=== PATIENT | female | born 1965 ===

== ENCOUNTER 2018-01-01 11:27 | Emergency (ER) | payer OTHER ==
[2018-01-01 11:45] VITALS: RESP 20
[2018-01-01] MEDS ORDERED: Morphine 4 MG/ML VIAL IVP STA (12:51)
[2018-01-01 13:13] LABS: BASO % 0.5 % (0.0-2.0); EOS # 0.2 K/uL (0.0-0.7); EOS % 3.6 % (0.0-4.0); HEMOGLOBIN 14.2 g/dL (12.0-16.0); LYMPH # 1.5 K/uL (1.0-4.3); LYMPH % 29.7 % (20.0-40.0); MEAN CELL VOLUME 89.3 fl (81.0-99.0); MEAN CORPUSCULAR HEMOGLOBIN 30.1 pg (27.0-31.0); MEAN CORPUSCULAR HGB CONC 33.7 g/dL (33.0-37.0); MEAN PLATELET VOLUME 9.1 fl (7.2-11.7); MONO # 0.3 K/uL (0.0-0.8); MONO % 6.7 % (0.0-10.0); NEUT # 2.9 K/uL (1.8-7.0); NEUT % 59.5 % (50.0-75.0); NRBC % 0.1 % (0.0-0.0); RBC 4.72 Mil/uL (3.80-5.20); RED CELL DISTRIBUTION WIDTH 13.5 % (11.5-14.5); WHITE BLOOD COUNT 4.9 K/uL (4.8-10.8)
[2018-01-01 13:14] LABS: SQUAMOUS EPITHIAL 1 /hpf (0-5); URINE BACTERIA OCC (<OCC); URINE BILIRUBIN NEGATIVE (NEGATIVE); URINE BLOOD NEGATIVE (NEGATIVE); URINE CLARITY CLEAR (Clear); URINE COLOR YELLOW (YELLOW); URINE GLUCOSE (UA) NEG (Normal); URINE LEUKOCYTE ESTERASE NEG Leu/uL (Negative); URINE PROTEIN NEGATIVE (NEGATIVE); URINE UROBILINOGEN 0.2-1.0 mg/dL (0.2-1.0)
[2018-01-01] MEDS ORDERED: Morphine 4 MG/ML VIAL ONE (13:24)
[2018-01-01 13:25] LABS: ALB/GLOB RATIO 1.2 (1.0-2.1); ALBUMIN 4.2 g/dL (3.5-5.0); ALT/SGPT 83 U/L (9-52); AMYLASE 87 U/L (30-110); AST/SGOT 41 U/L (14-36); BLOOD UREA NITROGEN 11 mg/dl (7-17); CALCIUM 9.7 mg/dL (8.4-10.2); GFR AFRICAN-AMERICAN > 60; GFR NON-AFRICAN AMERICAN > 60; LIPASE 134 U/L (23-300)
[2018-01-01] MEDS: Sodium Chloride 0.9% 1,000 ML IV SCH ×3 (13:35→15:25)
[2018-01-01] MEDS ORDERED: Iohexol 300 100 ML IJ ONE (14:39)
--- NOTE | 2018-01-01 15:07 | ED PDOC ---
HPI: Abdomen Time Seen by Provider: 01/01/18 12:23 Chief Complaint (Nursing): Abdominal Pain Chief Complaint (Provider): Abdominal Pain History Per: Patient History/Exam Limitations: no limitations Onset/Duration Of Symptoms: Persistent (x1 week) Current Symptoms Are (Timing): Still Present Additional Complaint(s): 52 year old female presents to the emergency department with a complaint of right-sided abdominal pain associated with constipation and nausea ongoing for 1 week. She denied any vomiting, diarrhea, bloody stool, urinary complaints or pain upon defecation. Of note, patient reported a possible family history of colon cancer. PMD: none provided Past Medical History Reviewed: Historical Data, Nursing Documentation, Vital Signs Vital Signs: Last Vital Signs Temp 98 F 01/01/18 18:09 Pulse 78 01/01/18 18:09 Resp 20 01/01/18 11:41 BP 120/70 01/01/18 18:09 Pulse Ox 98 01/01/18 18:09 - Medical History PMH: No Chronic Diseases - Surgical History Surgical History: No Surg Hx - Family History Family History: States: Unknown Family Hx Other Family History: Possible colon cancer - Social History Current smoker - smoking cessation education provided: No Alcohol: None Drugs: Denies - Home Medications Home Medications: Ambulatory Orders Medication Instructions Recorded Ranitidine HCl [Zantac] 150 mg PO BID #20 tablet 01/01/18 - Allergies Allergies/Adverse Reactions: Allergies Allergy/AdvReac Type Severity Reaction Status Date / Time No Known Allergies Allergy Verified 01/01/18 11:40 Review of Systems ROS Statement: Except As Marked, All Systems Reviewed And Found Negative Gastrointestinal: Positive for: Nausea, Abdominal Pain (right-sided), Constipation. Negative for: Vomiting, Diarrhea, Hematochezia, Rectal Pain Genitourinary Female: Negative for: Dysuria, Hematuria Physical Exam - Reviewed Nursing Documentation Reviewed: Yes Vital Signs Reviewed: Yes - Physical Exam Appears: Positive for: Non-toxic, No Acute Distress Head Exam: Positive for: ATRAUMATIC, NORMAL INSPECTION, NORMOCEPHALIC Skin: Positive for: Normal Color Eye Exam: Positive for: Normal appearance ENT: Positive for: Normal ENT Inspection Neck: Positive for: Normal Cardiovascular/Chest: Positive for: Regular Rate, Rhythm, Chest Non Tender Respiratory: Positive for: Normal Breath Sounds. Negative for: Decreased Breath Sounds, Respiratory Distress Gastrointestinal/Abdominal: Positive for: Bowel Sounds (present), Soft, Tenderness (RUQ > RLQ). Negative for: Mass Extremity: Positive for: Normal ROM (upper/lower) Neurologic/Psych: Positive for: Alert, Oriented - Laboratory Results Result Diagrams: 01/01/18 13:07 01/01/18 13:07 - ECG O2 Sat by Pulse Oximetry: 99 (RA) Pulse Ox Interpretation: Normal Medical Decision Making Medical Decision Making: Initial Impression: Abdominal pain Initial Plan: * CT ABD/pelvis with IV contrast * Amylase * CMP * Lipase * CBC * Morphine 4mg IVP * NS 1,000ml IV per 1,000mls/hr * Pepcid 20mg IVP * Zofran ODT 4mg PO * Urine culture * UA * US ABD 18:00 Reevaluation: Patient states she is feeling better and notes a significant improvement in symptoms. Upon provider evaluation patient is medically stable, and requires no further treatment in the ED at this time. Patient will be discharged . Counseling was provided and all questions were answered. There is agreement to discharge plan. Return if symptoms persist or worsen. Scribe Attestation: Documented by Cielo Rich, acting as a scribe for Reji Figueroa DO. Provider Scribe Attestation: All medical record entries made by the Scribe were at my direction and personally dictated by me. I have reviewed the chart and agree that the record accurately reflects my personal performance of the history, physical exam, medical decision making, and the department course for this patient. I have also personally directed, reviewed, and agree with the discharge instructions and disposition. Disposition - Clinical Impression Clinical Impression: Abdominal pain - Disposition Referrals: Bennie Moody, [Non-Staff] - Disposition Time: 17:00 Condition: IMPROVED Additional Instructions: Thank you for letting us take care of you today. The emergency medical care you received today was directed at your acute symptoms. If you were prescribed any medication, please fill it and take as directed. It may take several days for your symptoms to resolve. Return to the Emergency Department if your symptoms worsen, do not improve, or if you have any other problems. Please contact your doctor or call one of the physicians/clinics you have been referred to that are listed on the Patient Visit Information form that is included in your discharge packet. Bring any paperwork you were given at discharge with you along with any medications you are taking to your follow up visit. Our treatment cannot replace ongoing medical care by a primary care provider (PCP) outside of the emergency department. Thank you for allowing the [facility] team to be part of your care today. Follow up with your primary care doctor this week for further management. Emily por dejarnos atenderlo hoy. La atencin mdica de emergencia que recibi hoy estaba dirigida a kirsten sntomas agudos. Si le prescribieron algn medicamento, llnelo y tome segn las indicaciones. Kirsten sntomas pueden tardar varios britton en resolverse. Regrese al Departamento de Emergencia si kirsten s ntomas empeoran, no mejoran o si tiene algn otro problema. Comunquese con blank mdico o llame a katie de los mdicos / clnicas a los que casillas sido referido que figura en el formulario de Informacin de visita del paciente que se incluye en blank paquete de fariba. Traiga todos los documentos que recibi al momento del fariba junto con los medicamentos que est tomando en blank visita de seguimiento. Nuestro tratamiento no puede reemplazar la atencin mdica en curso por parte de un proveedor de atencin primaria (PCP) fuera del departamento de emergencias. Emily por permitir que el equipo de [facility] sea parte de blank cuidado hoy. Zuly un seguimiento con blank mdico de atencin primaria esta semana para ann mayor administracin. Prescriptions: Ranitidine HCl [Zantac] 150 mg PO BID #20 tablet Instructions: Gastritis (DC) Forms: [facility] (Moroccan) Print Language: TURKISH
[2018-01-01] MEDS ORDERED: Sodium Chloride 0.9% 100 ML ONE (15:34)
--- NOTE | 2018-01-01 15:45 | US ---
HISTORY: RUQ>RLQ tenderness COMPARISON: None. TECHNIQUE: Sonographic evaluation of the abdomen. FINDINGS: LIVER: Measures 14.4 cm. Hepatopedal blood flow. Fatty infiltration manifest ultrasonographically as increased echogenicity of the liver parenchyma. No mass. No intrahepatic bile duct dilatation. Incidental finding(s): Simple cyst right hepatic lobe 1 x 1.2 x 1.5 cm GALLBLADDER: Status post cholecystectomy. Positive sonographic Soliz sign elicited by technologist. COMMON BILE DUCT: Measures 10.6 mm. Dilated common bile duct. No intrahepatic bile duct dilatation. PANCREAS: Unremarkable as visualized. No mass. No ductal dilatation. Head of the pancreas obscured by overlying bowel gas. RIGHT KIDNEY: Measures 4.6 x 10cm. Normal echogenicity. No calculus, mass, or hydronephrosis. LEFT KIDNEY: Measures 4.5 x 12.1cm. Normal echogenicity. No calculus, mass, or hydronephrosis. SPLEEN: Normal in size and contour. No mass. AORTA: Obscured by overlying bowel gas. Non diagnostic assessment of the abdominal aorta IVC: Unremarkable. OTHER FINDINGS: None. IMPRESSION: Dilated common bile duct, positive sonographic Soliz sign elicited. Status post cholecystectomy. Distal common duct pathology cannot be assessed, obscured as is the head of the pancreas by overlying bowel gas
--- NOTE | 2018-01-01 17:14 | CT ---
PROCEDURE: CT Abdomen and Pelvis with contrast HISTORY: right-sided abdominal pain COMPARISON: None. TECHNIQUE: Contrast dose: 95 mL Omnipaque 300 Radiation dose: Total exam DLP = 1073.66 mGy-cm. This CT exam was performed using one or more of the following dose reduction techniques: Automated exposure control, adjustment of the mA and/or kV according to patient size, and/or use of iterative reconstruction technique. FINDINGS: LOWER THORAX: Unremarkable. LIVER: Normal size, contour and attenuation. Slightly lobulated 1.7 cm fluid density mass in the right hepatic lobe, nonspecific. No biliary dilatation. Smooth contour. GALLBLADDER AND BILE DUCTS: Status post cholecystectomy. Common bile duct mildly dilated up to 11 mm. PANCREAS: Unremarkable. No gross lesion or ductal dilatation. SPLEEN: Unremarkable. ADRENALS: Unremarkable. No mass. KIDNEYS AND URETERS: Unremarkable. No hydronephrosis. No solid mass. VASCULATURE: Unremarkable. No aortic aneurysm. BOWEL: Unremarkable. No obstruction. No gross mural thickening. APPENDIX: Not identified. No secondary findings. PERITONEUM: Unremarkable. No free fluid. No free air. LYMPH NODES: Unremarkable. No enlarged lymph nodes. BLADDER: Unremarkable. REPRODUCTIVE: Status post hysterectomy BONES: No acute fracture. OTHER FINDINGS: None. IMPRESSION: Status post cholecystectomy. Mildly dilated common bile duct up to 11 mm, likely related to prior cholecystectomy. Nonspecific 1.7 cm fluid density mass in right hepatic lobe. No additional abnormality.
[2018-01-01 18:10] VITALS: BP 120/70; PULSE 78; TEMP 98
[2018-01-01 18:21] VITALS: O2SAT 99
== END 2018-01-01 18:10 | disposition home or self-care (01) ==
LOC: H.ER 11:27
DX: R10.9 Unspecified abdominal pain (principal); Z90.49 Acquired absence of other specified parts of digestive tract
CPT/HCPCS: 74177; 76700; 80053; 81003; 81025; 82150; 83690; 85025; 87086; 96361; 96374; 96375; 99284; J2270; J7040; Q9967

== ENCOUNTER 2018-05-16 16:47 | Emergency (ER) | payer OTHER ==
[2018-05-16 17:05] VITALS: O2SAT 100
--- NOTE | 2018-05-16 17:27 | ED PDOC ---
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 Patient reports she has associated discomfort behind her knee. She took Tylenol with minimal relief. Patient denies fever, chills or any other medical complaints. Denies any recent travel. No trauma or injury PMD: none Past Medical History Reviewed: Historical Data, Nursing Documentation, Vital Signs Vital Signs: Last Vital Signs Temp 98.8 F 05/16/18 17:02 Pulse 85 05/16/18 17:02 Resp 16 05/16/18 17:02 BP 134/77 05/16/18 17:02 Pulse Ox 100 05/16/18 17:02 - Medical History PMH: Gastritis - Surgical History Surgical History: Appendectomy, Cholecystectomy, (x3) Other surgeries: hysterectomy - Family History Family History: States: No Known Family Hx - Living Arrangements Living Arrangements: With Family - Social History Current smoker - smoking cessation education provided: No Ex-Smoker (has not smoked in the last 12 months): Yes Alcohol: None Drugs: Denies - Home Medications Home Medications: Ambulatory Orders Medication Instructions Recorded Ranitidine HCl [Zantac] 150 mg PO BID #20 tablet 01/01/18 Ibuprofen [Motrin Tab] 800 mg PO Q8 PRN #20 tab 05/16/18 - Allergies Allergies/Adverse Reactions: Allergies Allergy/AdvReac Type Severity Reaction Status Date / Time No Known Allergies Allergy Verified 05/16/18 17:02 Wells Criteria for PE - Wells Criteria for Pulmonary Embolism Clinical Signs and Symptoms of DVT: Yes P.E is #1 Diagnosis, or Equally Likely: No Heart Rate >100: No Immobilization at least 3 days;Surgery previous 4 weeks: No Previous, objectively diagnosed PE or DVT: No Hemoptysis: No Malignancy w/treatment within 6 months, or palliative: No Total Score: 3 Review of Systems ROS Statement: Except As Marked, All Systems Reviewed And Found Negative Constitutional: Negative for: Fever, Chills Cardiovascular: Negative for: Chest Pain Respiratory: Negative for: Shortness of Breath Musculoskeletal: Positive for: Leg Pain (left), Other (left heel pain and knee discomfort) Neurological: Negative for: Weakness, Numbness, Incoordination Physical Exam - Reviewed Nursing Documentation Reviewed: Yes Vital Signs Reviewed: Yes - Physical Exam Appears: Positive for: Well, Non-toxic, No Acute Distress Skin: Positive for: Normal Color. Negative for: Rash Eye Exam: Positive for: Normal appearance Cardiovascular/Chest: Positive for: Regular Rate, Rhythm Respiratory: Positive for: Normal Breath Sounds Extremity: Positive for: Other (Tenderness to calcaneus region of left foot, swelling and tenderness to left calf and posterior left knee with full ROM) Neurologic/Psych: Positive for: Alert, Oriented - ECG O2 Sat by Pulse Oximetry: 100 (RA) Pulse Ox Interpretation: Normal - Other Rad Doppler left leg X-Ray: Read By Radiologist X-Ray Interpretation: no DVT Left foot x-ray X-Ray: Interpreted by Me, Viewed By Me X-Ray Interpretation: no fx, no dis, heel spur Medical Decision Making Medical Decision Making: Time: 17:19 Initial Impression: 52 year old female with left leg pain Initial Plan: --Motrin --Left foot XR --Lower extremities duplex Patient is aware of all diagnostic testing results, all questions answered. Prescription for Motrin given, patient referred to podiatry clinic for follow- up. Scribe Attestation: Documented by Isabel Sorensen, acting as a scribe for Beata Hernandez Provider Scribe Attestation: All medical record entries made by the Scribe were at my direction and personally dictated by me. I have reviewed the chart and agree that the record accurately reflects my personal performance of the history, physical exam, medical decision making, and the department course for this patient. I have also personally directed, reviewed, and agree with the discharge instructions and disposition. Procedures - Splinting Location: left foot Pre-Made Type: prema wrap, ortho shoe Pre-Proc Neuro Vasc Exam: normal Post-Proc Neuro Vasc Exam: normal Disposition - Clinical Impression Clinical Impression: Heel spur - Patient ED Disposition Is Patient to be Admitted: No Counseled Patient/Family Regarding: Studies Performed, Diagnosis, Need For Followup, Rx Given - Disposition Referrals: Podiatry Clinic [Outside] Disposition: Routine/Home Disposition Time: 18:45 Condition: STABLE Additional Instructions: Take prescription meds as directed as needed for pain. Follow-up with podiatry clinic. Prescriptions: Ibuprofen [Motrin Tab] 800 mg PO Q8 PRN #20 tab PRN Reason: Pain, Moderate (4-7) Instructions: Heel Spurs Forms: [employer] (Yi) Print Language: GERMAN
--- NOTE | 2018-05-16 17:48 | US ---
Date of service: 05/16/2018 HISTORY: pain, swelling left leg. PRIORS: None. FINDINGS: 2-D, color and duplex Doppler analysis of the lower extremity venous circulation using routine protocol from the femoral veins through the popliteal veins. Venous compressibility: Normal. Flow and augmentation patterns: Normal. Visualized veins upper third of calf: Normal. Chauhan cyst: None. IMPRESSION: No sonographic or Doppler evidence for DVT in left lower extremity.
[2018-05-16 18:51] VITALS: BP 128/78; PULSE 76; RESP 18; TEMP 98
--- NOTE | 2018-05-17 10:44 | RAD ---
Date of service: 05/16/2018 PROCEDURE: Left Foot Radiographs. HISTORY: heel pain COMPARISON: None. FINDINGS: BONES: No fracture. Plantar calcaneal spur noted. JOINTS: Normal. SOFT TISSUES: Normal. OTHER FINDINGS: None. IMPRESSION: No acute fracture. Plantar calcaneal spur noted.
== END 2018-05-16 18:50 | disposition home or self-care (01) ==
LOC: H.ER 16:47
DX: M77.32 Calcaneal spur, left foot (principal)

== ENCOUNTER 2019-02-21 13:31 | Emergency (ER) | payer OTHER ==
[2019-02-21 13:39] VITALS: BMI 35.9
[2019-02-21 15:14] LABS: SQUAMOUS EPITHIAL < 1 /hpf (0-5); URINE BILIRUBIN NEGATIVE (NEGATIVE); URINE BLOOD NEGATIVE (NEGATIVE); URINE CLARITY CLEAR (Clear); URINE COLOR YELLOW (YELLOW); URINE GLUCOSE (UA) NEG (NEGATIVE); URINE LEUKOCYTE ESTERASE NEG Leu/uL (Negative); URINE PROTEIN NEGATIVE (NEGATIVE); URINE UROBILINOGEN 0.2-1.0 mg/dL (0.2-1.0)
--- NOTE | 2019-02-21 15:41 | US ---
Date of service: 02/21/2019 HISTORY: ruq pain COMPARISON: None. TECHNIQUE: Sonographic evaluation of the right upper quadrant of the abdomen. FINDINGS: LIVER: Measures 15.0 cm in length. Normal echogenicity of the liver parenchyma. Simple cyst right lobe of liver, 1.8 by 1.8 x 1.2 cm. No solid mass. No biliary dilatation. Smooth contour. GALLBLADDER: Status post cholecystectomy. COMMON BILE DUCT: Measures 8 mm. No stones. No dilatation. PANCREAS: Poorly visualized. RIGHT KIDNEY: Measures 11.3 cm in length. Normal echogenicity. No calculus, mass, or hydronephrosis. AORTA: No aneurysmal dilatation. IVC: Unremarkable. OTHER FINDINGS: None . IMPRESSION: Status post cholecystectomy. Simple cyst right lobe of liver. Limited visualization of pancreas. Otherwise unremarkable.
[2019-02-21 16:21] LABS: BASO % 0.5 % (0.0-2.0); EOS # 0.1 K/uL (0.0-0.7); EOS % 2.1 % (0.0-4.0); HEMOGLOBIN 13.4 g/dL (12.0-16.0); LYMPH # 1.6 K/uL (1.0-4.3); LYMPH % 31.7 % (20.0-40.0); MEAN CELL VOLUME 89.3 fl (81.0-99.0); MEAN CORPUSCULAR HEMOGLOBIN 29.9 pg (27.0-31.0); MEAN CORPUSCULAR HGB CONC 33.5 g/dL (33.0-37.0); MEAN PLATELET VOLUME 9.5 fl (7.2-11.7); MONO # 0.6 K/uL (0.0-0.8); MONO % 11.7 % (0.0-10.0); NEUT # 2.7 K/uL (1.8-7.0); NRBC % 0.1 % (0.0-0.0); RBC 4.49 Mil/uL (3.80-5.20); RED CELL DISTRIBUTION WIDTH 12.9 % (11.5-14.5)
--- NOTE | 2019-02-21 16:26 | ED PDOC ---
HPI: Abdomen Time Seen by Provider: 02/21/19 13:51 Chief Complaint (Nursing): Abdominal Pain Chief Complaint (Provider): Abdominal Pain/left ankle pain History Per: Patient History/Exam Limitations: no limitations Onset/Duration Of Symptoms: Days Outside of [place] travel?: No Current Symptoms Are (Timing): Still Present Severity: Moderate Location Of Pain/Discomfort: RUQ Quality Of Discomfort: "Pain" Associated Symptoms: Nausea. denies: Fever, Chills, Vomiting, Diarrhea, Loss Of Appetite Exacerbating Factors: Food, Deep Breaths Alleviating Factors: None Additional History Per: Patient Additional Complaint(s): 53 year old female presents to the emergency room c/o RUQ abdominal pain for 2 weeks worsening in the last few days. with associated symptoms of nausea, bloa ting, increased pain post-prandial with radiating to right flank. Patient states feeling shortness of breath with climbing stairs and walking. Additionally patient states left ankle swelling started 3 days ago without injury. Patient states she woke up with swelling and pain when applying weight to the joint. Patient denies fever and vomiting. Past Medical History Reviewed: Historical Data, Nursing Documentation, Vital Signs Vital Signs: Last Vital Signs Temp 98 F 02/21/19 13:37 Pulse 56 L 02/21/19 13:37 Resp 16 02/21/19 13:37 BP 111/61 02/21/19 13:37 Pulse Ox 99 02/21/19 13:37 Primary Care Provider: FAMILY PROVIDER,NO - Medical History PMH: Gastritis - Surgical History Surgical History: Appendectomy, Cholecystectomy, (x3) - Family History Family History: States: Unknown Family Hx - Living Arrangements Living Arrangements: With Family - Social History Alcohol: None Drugs: Denies - Home Medications Home Medications: Ambulatory Orders Medication Instructions Recorded Ranitidine HCl [Zantac] 150 mg PO BID #20 tablet 01/01/18 Ibuprofen [Motrin Tab] 800 mg PO Q8 PRN #20 tab 05/16/18 - Allergies Allergies/Adverse Reactions: Allergies Allergy/AdvReac Type Severity Reaction Status Date / Time No Known Allergies Allergy Verified 02/21/19 13:48 Review of Systems ROS Statement: Except As Marked, All Systems Reviewed And Found Negative Constitutional: Negative for: Fever, Chills, Sweats, Weakness, Malaise Eyes: Negative for: Pain ENT: Negative for: Ear Pain, Mouth Pain, Throat Pain Cardiovascular: Negative for: Chest Pain, Palpitations, Light Headedness Respiratory: Positive for: Shortness of Breath, SOB with Exertion. Negative for: Cough Gastrointestinal: Positive for: Nausea, Abdominal Pain. Negative for: Vomiting Genitourinary Female: Negative for: Dysuria Skin: Negative for: Rash Neurological: Negative for: Dizziness Physical Exam - Reviewed Nursing Documentation Reviewed: Yes Vital Signs Reviewed: Yes - Physical Exam Appears: Positive for: Well, Non-toxic, No Acute Distress Head Exam: Positive for: ATRAUMATIC, NORMAL INSPECTION, NORMOCEPHALIC Skin: Positive for: Normal Color, Warm, DRY Eye Exam: Positive for: Normal appearance, PERRL ENT: Positive for: Normal ENT Inspection Neck: Positive for: Normal, Painless ROM, Supple Cardiovascular/Chest: Positive for: Regular Rate, Rhythm, Chest Non Tender Respiratory: Positive for: CNT, Normal Breath Sounds Pulses-Radial (L): 2+ Pulses-Radial (R): 2+ Gastrointestinal/Abdominal: Positive for: Normal Exam, Bowel Sounds (hypoactive ), Soft, Tenderness (ruq), Distended Back: Positive for: Normal Inspection. Negative for: L CVA Tenderness, R CVA Tenderness Extremity: Positive for: Tenderness (left innner malleolous ), Capillary Refill (<2secs cap refill ), Swelling (left ankle ). Negative for: Pedal Edema, Calf Tenderness, Deformity Neurological/Psych: Positive for: Awake, Alert, Normal Tone - Laboratory Results Result Diagrams: 02/21/19 16:03 02/21/19 16:03 Lab Results: Urine Color Yellow (YELLOW) 02/21/19 15:06 Urine Clarity Clear (Clear) 02/21/19 15:06 Urine pH 8.0 (5.0-8.0) 02/21/19 15:06 Ur Specific [place] 1.013 (1.003-1.030) 02/21/19 15:06 Urine Protein Negative mg/dL (NEGATIVE) 02/21/19 15:06 Urine Glucose (UA) Neg mg/dL (NEGATIVE) 02/21/19 15:06 Urine Ketones Negative mg/dL (NEGATIVE) 02/21/19 15:06 Urine Blood Negative (NEGATIVE) 02/21/19 15:06 Urine Nitrate Negative (NEGATIVE) 02/21/19 15:06 Urine Bilirubin Negative (NEGATIVE) 02/21/19 15:06 Urine Urobilinogen 0.2-1.0 mg/dL (0.2-1.0) 02/21/19 15:06 Ur Leukocyte Esterase Neg David/uL (Negative) 02/21/19 15:06 Urine RBC (Auto) 2 /hpf (0-3) 02/21/19 15:06 Urine Microscopic WBC < 1 /hpf (0-5) 02/21/19 15:06 Ur Squamous Epith Cells < 1 /hpf (0-5) 02/21/19 15:06 - ECG O2 Sat by Pulse Oximetry: 99 Medical Decision Making Medical Decision Making: --cbc --cmp --lipase --Abdominal US --left ankle xray --us lower ext duplex --Ct Abd pelvis 16:30 labs reviewed by me, unremarkable. patient re-assessed at this time, patient con tinues to be tender to RUQ. CT Scan Abd Pelvis for possible diagnostic source of pain. 1999 ankle xray negative for fx. US duplex left lower extremity to r/o DVT. Patient endorsed to Maty Edouard to follow up on CT scan of abd/pelvis and US duplex of lower extremity. Accession No. : [id number] Patient Name / ID : ROJELIO BARROSO A / [id number] Exam Date : 02/21/2019 14:58:23 ( Approved ) Study Comment : Sex / Age : F / 53Y Creator : Manuel Tomlinson MD Dictator : Manuel Tomlinson MD Sorting Machine Operator : Inspector Poising : Manuel Tomlinson MD Approver2 : Report Date : 02/21/2019 15:37:26 My Comment : Date of service: 02/21/2019 HISTORY: ruq pain COMPARISON: None. TECHNIQUE: Sonographic evaluation of the right upper quadrant of the abdomen. FINDINGS: LIVER: Measures 15.0 cm in length. Normal echogenicity of the liver parenchyma. Simple cyst right lobe of liver, 1.8 by 1.8 x 1.2 cm. No solid mass. No biliary dilatation. Smooth contour. GALLBLADDER: Status post cholecystectomy. COMMON BILE DUCT: Measures 8 mm. No stones. No dilatation. PANCREAS: Poorly visualized. RIGHT KIDNEY: Measures 11.3 cm in length. Normal echogenicity. No calculus, mass, or hydronephrosis. AORTA: No aneurysmal dilatation. IVC: Unremarkable. OTHER FINDINGS: None . IMPRESSION: Status post cholecystectomy. Simple cyst right lobe of liver. Limited visualization of pancreas. Otherwise unremarkable. Accession No. : [id number] Patient Name / ID : ROJELIO BARROSO A / [id number] Exam Date : 02/21/2019 15:26:29 ( Approved ) Study Comment : Sex / Age : F / 53Y Creator : Mitchell Ontiveros MD Dictator : Mitchell Ontiveros MD Sorting Machine Operator : Inspector Poising : Mitchell Ontiveros MD Approver2 : Report Date : 02/21/2019 16:46:02 My Comment : Date of service: 02/21/2019 HISTORY: SOB COMPARISON: No prior. TECHNIQUE: Chest PA and lateral views FINDINGS: LUNGS: Poor inspiration with low lung volumes common crowded bronchovascular markings and mild bibasilar atelectasis. PLEURA: No significant pleural effusion identified. No pneumothorax apparent. CARDIOVASCULAR: Heart size borderline enlarged. No aortic atherosclerotic calcification present. No pulmonary vascular congestion. Note is made of what appears represent a calcified mediastinal lymph node in the right lower paratracheal region. OSSEOUS STRUCTURES: No significant abnormalities. VISUALIZED UPPER ABDOMEN: Normal. OTHER FINDINGS: None. IMPRESSION: Poor inspiration with low lung volumes common crowded bronchovascular markings and mild bibasilar atelectasis. Accession No. : [id number] Patient Name / ID : ROJELIO Marrero / [id number] Exam Date : 02/21/2019 15:26:29 ( Approved ) Study Comment : Sex / Age : F / 53Y Creator : Mitchell Ontiveros MD Dictator : Mitchell Ontiveros MD Sorting Machine Operator : Inspector Poising : Mitchell Ontiveros MD Approver2 : Report Date : 02/21/2019 16:52:44 My Comment : Date of service: 02/21/2019 PROCEDURE: Left Ankle Radiographs. HISTORY: Pain and swelling COMPARISON: Comparison made with radiographs of the left foot 05/16/2018. TECHNIQUE: 3 views obtained. FINDINGS: BONES: No evidence of acute displaced fracture nor dislocation. The osseous structures appear intact. Small plantar surface calcaneal enthesophyte again noted JOINTS: No significant osteoarthritis. Ankle mortise maintained. Talar dome intact SOFT TISSUES: Normal. OTHER FINDINGS: None. IMPRESSION: No evidence of acute displaced fracture nor dislocation. Disposition - Clinical Impression Clinical Impression: Abdominal pain - Patient ED Disposition Is Patient to be Admitted: Transfer of Care - Disposition Disposition: Transfer of Care Disposition Time: 20:00 Condition: STABLE Forms: [facility] (Indonesian) Patient Signed Over To: Maty Hawk Handoff Comments: pending ct abd/pelvis. Us lower extremity duplex - POA Present On Arrival: None
[2019-02-21 16:30] LABS: ALB/GLOB RATIO 1.5 (1.0-2.1); ALBUMIN 4.3 g/dL (3.5-5.0); ALT/SGPT 90 U/L (9-52); AST/SGOT 62 U/L (14-36); BLOOD UREA NITROGEN 11 mg/dl (7-17); CALCIUM 9.9 mg/dL (8.4-10.2); GFR NON-AFRICAN AMERICAN > 60; LIPASE 72 U/L (23-300)
--- NOTE | 2019-02-21 16:49 | RAD ---
Date of service: 02/21/2019 HISTORY: SOB COMPARISON: No prior. TECHNIQUE: Chest PA and lateral views FINDINGS: LUNGS: Poor inspiration with low lung volumes common crowded bronchovascular markings and mild bibasilar atelectasis. PLEURA: No significant pleural effusion identified. No pneumothorax apparent. CARDIOVASCULAR: Heart size borderline enlarged. No aortic atherosclerotic calcification present. No pulmonary vascular congestion. Note is made of what appears represent a calcified mediastinal lymph node in the right lower paratracheal region. OSSEOUS STRUCTURES: No significant abnormalities. VISUALIZED UPPER ABDOMEN: Normal. OTHER FINDINGS: None. IMPRESSION: Poor inspiration with low lung volumes common crowded bronchovascular markings and mild bibasilar atelectasis.
[2019-02-21] MEDS ORDERED: Iohexol 240 (50 ml) PO ONE (16:52)
--- NOTE | 2019-02-21 16:56 | RAD ---
Date of service: 02/21/2019 PROCEDURE: Left Ankle Radiographs. HISTORY: Pain and swelling COMPARISON: Comparison made with radiographs of the left foot 05/16/2018. TECHNIQUE: 3 views obtained. FINDINGS: BONES: No evidence of acute displaced fracture nor dislocation. The osseous structures appear intact. Small plantar surface calcaneal enthesophyte again noted JOINTS: No significant osteoarthritis. Ankle mortise maintained. Talar dome intact SOFT TISSUES: Normal. OTHER FINDINGS: None. IMPRESSION: No evidence of acute displaced fracture nor dislocation.
[2019-02-21] MEDS ORDERED: Iohexol 240 (50 ml) ONE (17:26)
[2019-02-21] MEDS ORDERED: Sodium Chloride 0.9% 50 ML IV ONE (19:25)
[2019-02-21] MEDS ORDERED: Iohexol 300 100 ML IJ ONE (19:25)
--- NOTE | 2019-02-21 20:14 | ED PDOC ---
- Laboratory Results Result Diagrams: 02/21/19 16:03 02/21/19 16:03 Lab Results: Troponin I < 0.0120 ng/mL (0.00-0.120) 02/21/19 16:03 Total Bilirubin 0.7 mg/dl (0.2-1.3) 02/21/19 16:03 AST 62 U/L (14-36) H D 02/21/19 16:03 ALT 90 U/L (9-52) H 02/21/19 16:03 Alkaline Phosphatase 80 U/L (38-126) 02/21/19 16:03 Total Protein 7.1 G/DL (6.3-8.2) 02/21/19 16:03 Albumin 4.3 g/dL (3.5-5.0) 02/21/19 16:03 Globulin 2.8 gm/dL (2.2-3.9) 02/21/19 16:03 Albumin/Globulin Ratio 1.5 (1.0-2.1) 02/21/19 16:03 Lipase 72 U/L (23-300) 02/21/19 16:03 Urine Color Yellow (YELLOW) 02/21/19 15:06 Urine Clarity Clear (Clear) 02/21/19 15:06 Urine pH 8.0 (5.0-8.0) 02/21/19 15:06 Ur Specific [place] 1.013 (1.003-1.030) 02/21/19 15:06 Urine Protein Negative mg/dL (NEGATIVE) 02/21/19 15:06 Urine Glucose (UA) Neg mg/dL (NEGATIVE) 02/21/19 15:06 Urine Ketones Negative mg/dL (NEGATIVE) 02/21/19 15:06 Urine Blood Negative (NEGATIVE) 02/21/19 15:06 Urine Nitrate Negative (NEGATIVE) 02/21/19 15:06 Urine Bilirubin Negative (NEGATIVE) 02/21/19 15:06 Urine Urobilinogen 0.2-1.0 mg/dL (0.2-1.0) 02/21/19 15:06 Ur Leukocyte Esterase Neg David/uL (Negative) 02/21/19 15:06 Urine RBC (Auto) 2 /hpf (0-3) 02/21/19 15:06 Urine Microscopic WBC < 1 /hpf (0-5) 02/21/19 15:06 Ur Squamous Epith Cells < 1 /hpf (0-5) 02/21/19 15:06 - ECG O2 Sat by Pulse Oximetry: 100 - Progress ED Course And Treament: Case endorsed to sql report writer from [facility] CANALES pending CT, u/s EXAM: CT Abdomen and Pelvis with IV contrast CLINICAL HISTORY: Rt sided abd pain TECHNIQUE: Axial computed tomography images of the abdomen and pelvis with intravenous contrast. 790.65 mGy-cm CONTRAST: With; [id number] 95ML COMPARISON: None provided. FINDINGS: LUNG BASES: The lung bases appear clear. No pleural effusions are seen. LIVER: There is an approximate 1 x 1.2 cm cyst within the central portion of the right lobe of the liver. GALLBLADDER AND BILE DUCTS: The gallbladder has been surgically removed. PANCREAS: Unremarkable. SPLEEN: Unremarkable. ADRENAL GLANDS: Unremarkable. KIDNEYS, URETERS, AND BLADDER: The kidneys appear within normal limits. There is no hydronephrosis or hydroureter. No urinary calculi are seen. STOMACH AND BOWEL: Unremarkable appearance of the stomach and bowel. No evidence of bowel obstruction. No evidence suggesting enteritis or colitis. Diverticular changes present within the sigmoid and distal descending colon. APPENDIX: No evidence of acute appendicitis on CT examination. PERITONEUM: No free fluid. No free air. LYMPH NODES: No lymphadenopathy is evident. REPRODUCTIVE: Unremarkable as visualized. VASCULATURE: No evidence of abdominal aortic aneurysm. BONES: No aggressive appearing osseous lesion. No acute osseous pathology evident. IMPRESSION: No suspicious mass or lymphadenopathy. Small cyst within the right lobe of the liver. Status post cholecystectomy. Diverticular changes sigmoid distal descending colon. Clinical correlation advised. EXAM: US for Deep Venous Thrombosis, left Lower Extremity. CLINICAL HISTORY: Swelling TECHNIQUE: Real-time ultrasound scan of the veins of the left lower extremity with color Doppler flow, spectral waveform analysis and compression. COMPARISON: None provided. FINDINGS: DEEP VEINS: The common femoral, superficial femoral, and popliteal veins are echolucent and compressible. There is normal color Doppler flow throughout. The visualized calf veins appear patent. SUPERFICIAL VEINS: The visualized greater saphenous vein is patent. SOFT TISSUES: No popliteal fossa cyst or other abnormalities. IMPRESSION: No deep venous thrombosis evident on left lower extremity examination Patient resting comfortably on re-eval; states pain improved Patient without complaints of fever, LLQ pain, or diarrhea; not clinically suspicious for diverticular disease Patient educated on findings, discharged with instructions to follow up PMD/GI/podiatry BUD wrap applied to left ankle Advised trial OTC gas relief medications Return precautions given Disposition - Clinical Impression Clinical Impression: Abdominal pain, Left ankle pain, Liver cyst - POA Present On Arrival: None - Disposition Referrals: [facility] [Outside] Podiat[facility] [Outside] Jm Kruse MD [Staff Provider] - Disposition: Routine/Home Disposition Time: 21:25 Condition: IMPROVED Instructions: Joint Pain, Cysts in the Liver, Gas and Bloating, Acute Abdomen (Belly Pain) Print Language: WELSH
[2019-02-21 21:46] VITALS: BP 124/64; PULSE 76; RESP 18; TEMP 98.2; O2SAT 98
--- NOTE | 2019-02-22 10:13 | CT ---
Date of service: 02/21/2019 PROCEDURE: CT Abdomen and Pelvis with contrast HISTORY: abd pain COMPARISON: Abdomen pelvis CT with contrast 01/01/2018. TECHNIQUE: Following oral and intravenous contrast administration, a CT examination of the abdomen and pelvis was performed from the domes of the diaphragms to the symphysis pubis with reformatted datasets provided not only axial but also sagittal and coronal series. Contrast dose: Omnipaque 300, 95 cc Radiation dose: Total exam DLP = 790.65 mGy-cm. This CT exam was performed using one or more of the following dose reduction techniques: Automated exposure control, adjustment of the mA and/or kV according to patient size, and/or use of iterative reconstruction technique. FINDINGS: LOWER THORAX: Unremarkable. LIVER: No intrahepatic biliary dilatation appreciable. Stable lucency right lobe liver 1.7 cm with fluid density again measured at 14 Hounsfield units. The remainder of the liver appears unremarkable. GALLBLADDER AND BILE DUCTS: Prior cholecystectomy reiterated. Common bile duct dilatation is stable at 11 mm through the midportion tapering to a normal caliber distally. PANCREAS: Unremarkable. No gross lesion or ductal dilatation. SPLEEN: Unremarkable. ADRENALS: Unremarkable. No mass. KIDNEYS AND URETERS: Unremarkable. No hydronephrosis. No solid mass. VASCULATURE: Unremarkable. No aortic aneurysm. No aortic atherosclerotic calcification or mural plaque present. BOWEL: No bowel obstruction appreciated. Scattered diverticular changes seen at the mid and distal large-bowel and occasionally at the ascending colon as well. No definite interval diverticulitis pattern appreciable. Retained fecal material obscures evaluation of the distal rectosigmoid. Small bowel appears unremarkable diffusely. APPENDIX: Normal appendix. PERITONEUM: Unremarkable. No free fluid. No free air. LYMPH NODES: Unremarkable. No enlarged lymph nodes. BLADDER: Unremarkable. REPRODUCTIVE: Prior hysterectomy reiterated. BONES: No acute fracture. OTHER FINDINGS: None. IMPRESSION: 1. No definitive acute abdominal or pelvic findings as per above. 2. Stable 1.7 cm lucency right lobe liver. 3. Prior cholecystectomy and stable extrahepatic biliary dilatation seen including CBD up to 11 mm without radiodense choledocholithiasis appreciable at this time. 4. Scattered colonic diverticulosis throughout the mid and distal segments of large bowel without obvious diverticulitis pattern. Large-bowel is not fully distended diffusely though oral contrast opacifies much of the large bowel. Wall thickness is limited evaluation. Concordant preliminary report from [facility], 02/21/2019, 8 o'clock p.m..
--- NOTE | 2019-02-22 12:52 | US ---
Date of service: 02/21/2019 HISTORY: SWELLING LEFT LEG. PRIORS: None. FINDINGS: 2-D, color and duplex Doppler analysis of the lower extremity venous circulation using routine protocol from the left common and superficial femoral veins through the popliteal vein. Venous compressibility: Normal. Flow and augmentation patterns: Normal. Visualized posterior tibial vein: Normal. Chauhan cyst: None. IMPRESSION: No sonographic or Doppler evidence for DVT in left lower extremity. Concordant preliminary report from [facility], 02/21/2019, 9:01 p.m..
== END 2019-02-21 21:45 | disposition home or self-care (01) ==
LOC: H.ER 13:31
DX: R10.11 Right upper quadrant pain (principal); M25.572 Pain in left ankle and joints of left foot; Q44.6 Cystic disease of liver; K57.30 Diverticulosis of large intestine without perforation or abscess without bleeding
CPT/HCPCS: 71046; 73610; 74177; 76705; 80053; 81003; 81025; 83690; 84484; 85025; 93971; 96374; 96375; 99284; J1885; J2405; Q9966; Q9967